=== PATIENT | male | born 1970 | race Two or more races ===

== ENCOUNTER 2020-11-01 06:47 | Day surgery (SDC) | payer BC ==
[~2020-11-01] VITALS: Ht 191.8 cm; Wt 97.5 kg
[2020-11-01] VITALS (7 sets, daily range): BP systolic 112–127; BP diastolic 58–78
[2020-11-01] MEDS ORDERED: LR 1000ml 1,000 ML IVLG SCH ×2 (07:00→08:00)
[2020-11-01] MEDS ORDERED: Midazolam 2mg/2ml Inj ONE (07:27)
[2020-11-01] MEDS ORDERED: fentaNYL 100 mcg/2 mL IV ONE (07:27)
--- NOTE | 2020-11-01 07:46 | Anethesia Preoperative Eval ---
Anesthesia Pre-op PMH/ROS General Date of Evaluation: Nov 01, 2020 Time of Evaluation: 07:44 Anesthesiologist: Amy ASA Score: ASA 2 Mallampati Score Class I : Soft palate, uvula, fauces, pillars visible Class II: Soft palate, uvula, fauces visible Class III: Soft palate, base of uvula visible Class IV: Only hard plate visible Mallampati Classification: Class II Surgeon: Antonella Diagnosis: Colon CA screening Surgical Procedure: Colonoscopy Anesthesia History: none Family History: no anesthesia problems Allergies: Coded Allergies: No Known Allergies (Unverified , 11/01/20) Medications: see eMAR Patient NPO?: Yes Past Medical History Cardiovascular: Denies: HTN, CAD, PR, valve dz, arrhythmia, other Pulmonary: Denies: asthma, COPD, RENATA, other Gastrointestinal/Genitourinary: Reports: GERD - mild; Denies: CRI, ESRD, other Neurologic/Psychiatric: Denies: dementia, CVA, depression/anxiety, TIA, other Endocrine: Denies: DM, hypothyroidism, steroids, other HEENT: Denies: cataract (L), cataract (R), glaucoma, OHOGAMIUT (L), OHOGAMIUT (R), other Hematology/Immune: Denies: anemia, DVT, bleeding disorder, other Musculoskeletal/Integumentary: Denies: OA, RA, DJD, DDD, edema, other PMH Narrative: as above PSxH Narrative: Spine Sx Anesthesia Pre-op Phys. Exam Physician Exam Last Vital Signs Date Time Temp Pulse Resp B/P (MAP) Pulse Ox O2 Delivery O2 Flow Rate FiO2 11/01/20 07:10 98.1 51 18 127/77 98 Room Air Constitutional: NAD Neurologic: CN 2-12 intact Cardiovascular: RRR, no M/R/G Respiratory: CTA Gastrointestinal: S/NT/ND Airway Exam Mallampati Score: Class II MO: full Neck: flexible ROM: full Teeth: intact Dentures: no upper, no lower Anesthesia Pre-op A/P Risk Assessment & Plan Assessment: ASA 2 Plan: Rodríguez Clifton MD Nov 01, 2020 07:46
[2020-11-01] MEDS ORDERED: LR 1000ml ONE (08:00)
[2020-11-01] MEDS ORDERED: fentaNYL 100 mcg/2 mL IV PRN (08:00)
--- NOTE | 2020-11-01 08:09 | Short Stay Surgery H&P ---
History of Present Illness History of Present Illness Chief Complaint see H&P HPI Neftaly Ying is a 50 year old male who was admitted on for Screening Patient History Allergies: Coded Allergies: No Known Allergies (Unverified , 11/01/20) Medication History No Active Prescriptions or Reported Meds Physical Exam Vital Signs Last Vital Signs Date Time Temp Pulse Resp B/P (MAP) Pulse Ox O2 Delivery O2 Flow Rate FiO2 11/01/20 07:10 98.1 51 18 127/77 98 Room Air Plan Attestation Are the patient's medical conditions optimized for surgery? Justin Simon MD Nov 01, 2020 08:09
--- NOTE | 2020-11-01 08:10 | Pre-Procedure Note/Attestation ---
Pre-Procedure Note/Attestation Complete Prior to Procedure Planned Procedure: not applicable Procedure Narrative: colonoscopy Indications for Procedure Pre-Operative Diagnosis: screen Attestation I attest that I discussed the nature of the procedure; its benefits; risks and complications; and alternatives (and the risks and benefits of such alternatives), prior to the procedure, with the patient (or the patient's legal patient support representative). I attest that, if there was a reasonable possibility of needing a blood transf usion, the patient (or the patient's legal patient support representative) was given the [facility] standardized written summary, pursuant to the Darrell Sudarshan Blood Safety Act ([place] Health and Safety Code # 1645, as amended). I attest that I re-evaluated the patient just prior to the surgery and that there has been no change in the patient's H&P, except as documented below: Justin Simon MD Nov 01, 2020 08:10
--- NOTE | 2020-11-01 08:40 | Endoscopy Procedure Note ---
Endoscopy Procedure Note General Indication for Procedure: screen Procedures Performed: colonoscopy Operative Findings/Diagnosis: TV polyp Specimen: yes Pt Tolerated Procedure Well: Yes Estimated Blood Loss: none Anesthesia Anesthesiologist: Kristen Anesthesia: MAC Medications Medication Given: see anesthesia record Inserted Devices Implant(s) used?: No Quality Quality of Bowel Preparation: Good Was there any complications?: No GI Core Measures 50 yrs or older w/o bx or poly: No 10yrs. F/U recommended: No 18 years or older w/prev. colo: No <3yrs. since last colonoscopy: No Med reason:<3 yrs.: System Reason:<3 yrs.: Last colonoscopy >= to 3yrs: Yes Justin Simon MD Nov 01, 2020 08:40
--- NOTE | 2020-11-01 08:43 | Brief Operative Note ---
Immediate Post Operative Note Operative Note Chief Complaint: screen Pre-op Diagnosis: screen Procedure: colon Post-op Diagnosis: TV polyp Surgeon: Alfred Anesthesiologist: Kristen Specimen: yes Complications: none Fluids: Per anesthesia Implant(s) used?: No Justin Simon MD Nov 01, 2020 08:43
--- NOTE | 2020-11-01 08:43 | Immediate Post-Op Evaluation ---
Immediate Post-Op Evalulation Immediate Post-Op Evalulation Procedure: Colonoscopy Date of Evaluation: Nov 01, 2020 Time of Evaluation: 08:42 IV Fluids: 700 Blood Products: none Estimated Blood Loss: none Urinary Output: none Blood Pressure Systolic: 114 Blood Pressure Diastolic: 69 Pulse Rate: 58 Respiratory Rate: 18 O2 Sat by Pulse Oximetry: 99 Temperature (Fahrenheit): 97.8 Pain Score (1-10): 1 Nausea: No Vomiting: No Complications none Patient Status: awake, patent, none Hydration Status: adequate Rodríguez Reyes MD Nov 01, 2020 08:43
--- NOTE | 2020-11-01 09:23 | 48 Hour Post Anesthesia Eval ---
Post Anesthesia Evaluation Procedure: Colonoscopy Date of Evaluation: Nov 01, 2020 Time of Evaluation: 09:22 Blood Pressure Systolic: 120 0: 58 Pulse Rate: 58 Respiratory Rate: 18 Temperature (Fahrenheit): 97.6 O2 Sat by Pulse Oximetry: 98 Airway: patent Nausea: No Vomiting: No Pain Intensity: 1 Hydration Status: adequate Cardiopulmonary Status: stable Mental Status/LOC: patient returned to baseline Follow-up Care/Observations: n/a Post-Anesthesia Complications: none Follow-up care needed: ready to discharge Rodríguez Reyes MD Nov 01, 2020 09:23
--- NOTE | 2020-11-01 09:29 | Operative Note - Dictated ---
DATE OF OPERATION: 11/01/2020 PROCEDURE: Screening colonoscopy with biopsy. SURGEON: Justin Simon MD. ANESTHESIA: Please see the separate anesthesiologist notes for details. PRE-ENDOSCOPIC DIAGNOSIS: Need for screening colonoscopy. POST-ENDOSCOPIC DIAGNOSIS: Diminutive transverse colon polyp, status post removal with a biopsy forceps. PROCEDURE IN DETAIL: The procedure, its risks, indications, alternatives, and possible complications including but not limited to bleeding, infection, perforation, , and anesthesia complications were explained to the patient and informed consent was obtained. The patient was then sedated in the left lateral decubitus position and the rectal exam was done, which was normal. The colonoscope was introduced into the rectum and advanced to the cecum without difficulty. The cecum was identified by the appearance of ileocecal valve and the appendiceal orifice. The colonoscope was then gradually withdrawn and the mucosa examined carefully. Examination of the colonic mucosa revealed the above listed findings. Retroflexed view of the rectum was unremarkable. The colonoscope was removed and the patient was sent to recovery in good condition. COMPLICATIONS: None. RECOMMENDATIONS: 1. Follow up biopsy results. 2. Outpatient followup. Justin Simon M.D. DR: SANDRA JOB#: [id number] CC:
== END 2020-11-01 09:40 | disposition home or self-care (01) ==
LOC: GAS 06:47
DX: Z12.11 Encounter for screening for malignant neoplasm of colon (principal); K63.5 Polyp of colon; K21.9 Gastro-esophageal reflux disease without esophagitis; D12.3 Benign neoplasm of transverse colon
CPT/HCPCS: 45380; 94003; J2250; J2704; J3010; J7120; U0004; 94150